=== PATIENT | female | born 2000 | race Caucasian/White ===

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

== ENCOUNTER 2019-06-03 07:04 | Emergency (ER) | payer MEDICAID ==
[~2019-06-03] VITALS: Ht 165.1 cm; Wt 79.4 kg
[2019-06-03 07:14] VITALS: Ht 165.1 cm; Wt 79.4 kg
[2019-06-03 08:02] LABS: BASOPHIL % 0.1 % (0-2); PLATELET COUNT 220 x10^3mcL (130-400); RED CELL DISTRIBUTION WIDTH 13.5 % (11.5-14.5)
[2019-06-03 08:07] LABS: CALCIUM 9.4 mg/dL (8.5-10.1); CARBON DIOXIDE 24.4 mmol/L (21-32); CHLORIDE SERUM 102 mmol/L (98-107); CREATININE SERUM 0.6 mg/dL (0.6-1.0); GFR1 > 60 mL/min; GLUCOSE SERUM 112 mg/dL (74-106); SODIUM SERUM 141 mmol/L (136-145)
[2019-06-03 08:12] LABS: ALBUMIN 4.7 g/dL (3.4-5.0); ALKALINE PHOSPHATASE 73 U/L (46-116); ALT/SGPT 21 U/L (14-59); AST/SGOT 10 U/L (15-37); BILIRUBIN TOTAL 0.58 mg/dL (0.20-1.00); LIPASE 54 IU/L (73-393)
[2019-06-03 08:18] LABS: TOTAL PROTEIN, SERUM 8.6 g/dL (6.4-8.2)
[2019-06-03 09:45] VITALS: BP 121/76
== END 2019-06-03 09:53 | disposition home or self-care (01) ==
LOC: ED 07:04
PROVIDERS: Emergency Medicine
DX: K52.9 Noninfective gastroenteritis and colitis, unspecified (principal)
CPT/HCPCS: J1885; J2405; J7030

== ENCOUNTER 2020-06-18 14:38 | Emergency (ER) | payer OTHER ==
[~2020-06-18] VITALS: Ht 162.6 cm; Wt 81.6 kg
[2020-06-18 15:13] VITALS: Ht 162.6 cm; Wt 81.6 kg
[2020-06-18 16:45] VITALS: BP 113/75
== END 2020-06-18 16:45 | disposition home or self-care (01) ==
LOC: ED 14:38
DX: F07.81 Postconcussional syndrome (principal); W21.02XA Struck by soccer ball, initial encounter; Y93.66 Activity, soccer; Y92.89 Other specified places as the place of occurrence of the external cause; Y99.8 Other external cause status